=== PATIENT | male | born 1995 | race Caucasian/White ===

== ENCOUNTER 2021-11-18 16:36 | Emergency (ER) | payer OTHER ==
[~2021-11-18] VITALS: Ht 195.6 cm; Wt 107.3 kg
[2021-11-18 16:36] VITALS: BP 121/72
[2021-11-18] MEDS ORDERED: ACET-683 PO (16:42)
[2021-11-18] MEDS ORDERED: ACETAMINOPHEN 325 MG TAB PO ONE (18:05)
[2021-11-18 18:46] LABS: RSV AMPLIFICATION NEGATIVE (NEGATIVE)
[2021-11-18] MEDS ORDERED: IBUPROFEN 800 MG TAB PO ONE (19:10)
== END 2021-11-18 19:24 | disposition home or self-care (01) ==
LOC: M ED 16:36
DX: U07.1 COVID-19 (principal)